=== PATIENT | male | born 1990 | race Caucasian/White ===

== ENCOUNTER 2019-12-13 06:25 | Emergency (ER) | payer MEDICAID ==
[~2019-12-13] VITALS: Ht 160 cm; Wt 65.9 kg
[2019-12-13 06:47] VITALS: BP 135/92
[2019-12-13] MEDS ORDERED: DOXY100C76 PO (07:12)
== END 2019-12-13 07:36 | disposition home or self-care (01) ==
LOC: ER 06:26
DX: A64 Unspecified sexually transmitted disease (principal); F17.200 Nicotine dependence, unspecified, uncomplicated; Z59.0 Homelessness; Z01.84 Encounter for antibody response examination; Z11.59 Encounter for screening for other viral diseases
CPT/HCPCS: 36415; 99281; 99283